=== PATIENT | male | born 1990 | race African-American/Black ===

== ENCOUNTER 2017-09-06 17:05 | Emergency (ER) | payer SELFPAY ==
[~2017-09-06] VITALS: Ht 175.3 cm; Wt 79.8 kg
[2017-09-06] MEDS ORDERED: PENICILLIN G BENZATHINE 600000 UNIT/1 ML IM STA (18:04)
[2017-09-06] MEDS ORDERED: AZITHROMYCIN 250 MG TAB PO ONE (18:15)
[2017-09-06] MEDS ORDERED: CEFTRIAXONE SOD 250 MG VIAL IM ONE (18:15)
[2017-09-06] MEDS ORDERED: PENICILLIN G BENZATHINE LA 1.2 MU TBX IM NR (18:30)
== END 2017-09-06 19:18 | disposition home or self-care (01) ==
LOC: ER 17:05
DX: R36.9 Urethral discharge, unspecified (principal); R23.8 Other skin changes; Z87.898 Personal history of other specified conditions
CPT/HCPCS: 99283; J0561; J0696